=== PATIENT | male | born 1960 | race Caucasian/White ===

== ENCOUNTER 2019-06-29 05:35 | Day surgery (SDC) | payer BC, SELFPAY ==
[2019-06-28 08:58] VITALS: BMI 25.0
--- NOTE | 2019-06-28 10:05 | HP.PCM_ITS ---
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 Is patient in pain?: No Allergies No Known Allergies Allergy (Unverified 06/28/19 08:59) Medications NK 06/28/19 [History Confirmed 06/28/19] [facility] Medical History Cat scratch fever (Acute) Surgical History H/O elbow surgery (Acute) History of facial surgery (Acute) s/p salivary gland removal (Acute) Family History Father Colon cancer Sister Colon cancer HPI HPI HPI: DANIEL HERNANDEZ, is a 58 M who presents to the office today for HPI HPI Surgical H&P: Yes HPI: DANIEL HERNANDEZ, is a 58 M who presents to the office today for left inguinal hernia. The patient reports that this is been there for about 2 years. It is bothersome. It happens whenever he coughs or sneezes or lifts heavy objects. He is not having any symptoms on the opposite side. ROS General General: No weight change or fatigue Cardio Cardiovascular: No murmur, pacemaker, heart disease, atrial fibrillation, high blood pressure, heart attack, heart stent, palpitations, shortness of breat with exertion or chest pain Psych Psychiatric: No depression or anxiety Resp Respiratory: No shortness of breath, No sleep apnea, No cough, No COPD, No asthm a, No emphysema, No wheezing Gastro Gastrointestinal: No abdominal pain, No nausea or vomiting, No diarrhea, No constipation, No blood in stool, No acid reflux, No hemorrhoids, No ulcers, No gallbladder problem, No black,tarry stools Additional Details: Left groin bulging Davion Hematologic: No blood thinners Exam Const General: cooperative Orientation: alert, oriented x3 Resp Effort & Inspection: normal respiratory effort Auscultation: clear to auscultation bilaterally Cardio Rate: regular rate Rhythm: regular rhythm Heart Sounds: no murmurs GI Inspection: non-distended Palpation: soft, nontender Other: Patient has a left direct inguinal hernia which is reducible and soft Assessment & Plan Problems 1. Left inguinal hernia K40.90 Plan The patient has a left direct inguinal hernia. I discussed open versus robotic surgery with him. He would like robotic surgery. I discussed the risks including but not limited to bleeding, infection, spermatic cord injury, bowel injury, chronic groin pain. The patient understands all the risks and is willing to proceed with robotic assisted laparoscopic left inguinal hernia repair with mesh. I also discussed fixing the contralateral side if a hernia is noted and he would like this repaired if present. Josias Garcia MD Pager: [facility] [address] [place] [address] [address] [place] [address] Office:
--- NOTE | 2019-06-28 15:10 | EKG12_ITS ---
Test Reason : PRE OP Blood Pressure : / mmHG Vent. Rate : 091 BPM Atrial Rate : 091 BPM P-R Int : 162 ms QRS Dur : 084 ms QT Int : 346 ms P-R-T Axes : 057 036 067 degrees QTc Int : 425 ms Normal sinus rhythm Normal ECG Confirmed by CHONG COON, RU ([id number]), editor sound KIMBERLY TESFAYE ([id number]) on 07/03/2019 11:43:26 AM Referred By: Josias Garcia Confirmed By:KANE SCHWARZ MD
[2019-06-28 15:15] LABS: Hematocrit 45.7 % (40-54); Hemoglobin 15.4 g/dL (13.0-16.5); Mean Corp Hgb Conc 33.7 g/dL (32-36); Mean Corpuscular Hgb 32.6 pg (27.0-32.0); Mean Corpuscular Volume 96.8 fL (80-94); Mean Platelet Vol. 9.3 fl (6.2-12.0); Platelet Count 277 K/mm3 (150-450); RBC Distribution Width CV 12.7 % (11.6-14.6); RBC Distribution Width SD 45.7 fl (35.1-43.9); Red Blood Count 4.72 M/mm3 (4.6-6.2); White Blood Count 7.2 K/mm3 (4.4-11.0)
[2019-06-28 15:40] LABS: Partial Thromboplast Time 31.6 Seconds (24.1-36.2)
[2019-06-28 15:56] LABS: AST(SGOT) 21 U/L (15-37); Alanine Aminotransfer ALT/SGPT 26 U/L (16-61); Albumin, Serum 4.6 g/dL (3.2-5.0); Alkaline Phosphatase 75 U/L (45-117); Anion Gap 4 (5-15); BUN 14 mg/dL (7-18); BUN/Creat Ratio 12.5 RATIO (10-20); Bilirubin, Direct 0.13 mg/dL (0.00-0.30); Calcium,Total 9.4 mg/dL (8.5-10.1); Chloride 106 mmol/L (98-107); Creatinine, Serum 1.12 mg/dL (0.70-1.30); EST Glomerular Filtration Rate 72 mL/min (>60); Est Glom Filt Rate - Afr Amer 87 mL/min (>60); Globulin 3.3 g/dL (2.2-4.2); Glucose 137 mg/dL (74-106); Potassium 4.2 mmol/L (3.5-5.1); Protein, Total 7.9 g/dL (6.4-8.2); Sodium Level 140 mmol/L (136-145)
[2019-06-29] VITALS (10 sets, daily range): BP systolic 108–137; BP diastolic 76–92; PULSE 55–86; RESP 16; TEMP 36.1–36.7; O2SAT 95–100; BMI 25.8
[2019-06-29] MEDS: Lactated Ringers 1,000 ML 100 ML IV ×2 (06:08→06:10)
--- NOTE | 2019-06-29 07:30 | LIP_PTH ---
PATIENT: SAMUEL HERNANDEZ LOC: [facility] U#:[id number] AGE/SX: 58/M ROOM: RE06/29/[address]: Dr. Josias Garcia MD : 1960 BED: DIS: 06/29/2019 SPEC #: [id number] RECD: 06/29/19 10:11 STATUS: ZAIRA REConcetta #: [id number] CARLINE: 06/29/19 07:[address]: Josias Garcia DEPT: SURGICAL PATHOLOGY RECD BY: Kevin Larsen ENTERED: 06/29/19 12:52 SP TYPE: LIPOMA OTHR DR: MD Dr. Samuel Pastor MD Tissues: Soft tissues, NOS Procedures: Surgery Specimen Level III HEADER OPERATION: Lap robotic inguinal hernia PRE-OP DIAGNOSIS: Left inguinal hernia TISSUE SUBMITTED: Lipoma MICROSCOPIC DIAGNOSIS Lipoma: Mature adipose tissue, consistent with lipoma. SJ:iesha 06/30/19 MICROSCOPIC DESCRIPTION Slides are reviewed. GROSS DESCRIPTION Received in fixative is one container labeled with the patient name and designated lipoma. The specimen consists of multiple pieces of yellow adipose tissue measuring in aggregate 4.5 x 4 x 1.5 cm. Sections reveal yellow adipose cut surfaces without area of hemorrhage, necrosis or cystic degeneration. Vocational School Teacher sections are submitted in three cassettes. / SJ:iesha 06/29/19 TC:1 CPT: 37136
[2019-06-29] MEDS: Cefazolin 2 GM in 0.9% Normal Saline 100 ML IV (08:11)
[2019-06-29] MEDS: Bupivacaine Mpf 0.5% 30 ML VIAL (09:00)
[2019-06-29] MEDS: Acetaminophen 325 MG Tablet PO (12:01)
[2019-06-29] MEDS: oxyCODONE 5 MG Tablet PO (12:02)
--- NOTE | 2019-06-29 12:14 | PCM.DC.HER ---
Discharge Diet: Light diet - advance as tolerated Discharge Activity: Return to Normal Activity, May Not Drive - for 2-3 days or while taking narcotic pain meds., May Shower - with the bandage in place 1-2 days after surgery. Lifting Restrictions: 20 pounds for 4 weeks. Additional Activity Instructions:: Climbing stairs is fine, walking is encouraged. Sitting in bed may be uncomfortable. Sitting up using your lateral muscles (sitting up sideways) is usually more comfortable. Do not drive, work heavy equipment of sign legal documents for 24 hours. If your hernia repair was an ingunial repair, you may have scrotal swelling, an ice pack and/or athletic support can provide more comfort. Pain medications may cause nausea, you should typically eat light foods as you take your pain medications. Pain medications may also cause constipation. If you have difficulty with this, discuss with your doctor. Call your doctor if your incision/area has: Continuous Slow Oozing, Sudden Increased Bleeding, Increased Pain/ Swelling, Increased Redness, Foul Smelling Discharge Call your doctor if you observe: Fever of 101 or Higher Suture Line Care: Avoid Pulling/Pushing, Avoid Pinching/Bending Change Dressing in (Days):: 3 - Leave steri-strips for 1 week. May protect with a guaze bandaid. Cleanse incision/area with: Keep Dressing Clean & Dry Allergies/Adverse Reactions: Allergies No Known Allergies Allergy (Verified 06/29/19 05:50) Medications to take at Discharge Oxycodone HCl/Acetaminophen [Percocet 5/325] 1 - 2 tablet PO Q6H PRN PRN 4 Days #20 tablet 06/29/19 The following prescriptions were given: Oxycodone HCl/Acetaminophen [Percocet 5/325] 1 - 2 tablet PO Q6H PRN PRN 4 Days #20 tablet PRN Reason: Pain Transmission Status: Sent to [facility] Orders to be completed after discharge: 12 Lead EKG [CVS] Time Frame: 06/28/19, Facility: [facility], Location: Cardiovascular Services Basic Metabolic Profile (BMP) Time Frame: 06/28/19, Facility: [facility], Location: Laboratory CBC-Complete Blood Cnt No Diff Time Frame: 06/28/19, Facility: [facility], Location: Laboratory Liver Profile Time Frame: 06/28/19, Facility: [facility], Location: Laboratory Partial Thromboplast Time Time Frame: 06/28/19, Facility: [facility], Location: Laboratory Prothrombin Time w/INR Time Frame: 06/28/19, Facility: [facility], Location: Laboratory Primary Care Physician: Samuel Denise MD [Primary Care Provider] - Test Results: Test results from this visit will be discussed in further detail at your follow-up appointment, if applicable. Please Follow Up With: Josias Garcia MD When: Please call to schedule 2 week follow up appointment. [phone]
--- NOTE | 2019-06-30 08:19 | OP.PCM_ITS ---
Problem List (1) Left inguinal hernia Status: Acute Report of Operation Date of Procedure: 06/29/19 Pre-Operative Diagnosis: Left inguinal hernia Post-Operative Diagnosis: Same Surgery/Procedure Performed:: Robotic assisted laparoscopic left inguinal hernia repair with mesh Specimen's removed: Lipoma Description of Procedure: Patient was brought back the operating room and general anesthesia was induced. The abdomen was prepped and draped in usual sterile fashion. An incision was made superior to the midline and a Veress needle was placed into the abdomen and a drop test was performed. The abdomen was then insufflated to 15 mmHg. The Veress needle was removed and the camera port was placed into the abdomen and the abdomen was inspected for injuries and there were none. Next the inguinal areas were inspected and the patient had an indirect left inguinal hernia. Next a 8 mm port was placed in the right lateral sidewall and left lateral sidewall u nder direct visualization and the patient was placed into steep Trendelenburg position and the robot was docked. Using electrocautery scissors the peritoneum was incised and dissected inferiorly until the hernia sac was reached. The hernia sac was reduced into the abdomen using a combination of sharp and cautery dissection. There was a lipoma of the left inguinal cord which was excised. Once the dissection was complete a pro-director nursery school mesh was placed in the left inguinal region and unfolded completely covering the hernia. Next the peritoneum was reapproximated using a running 3-0V lock suture. This completely covered the mesh. The abdomen then was then desufflated and the robot was undocked. The incisions were anesthetized and closed with interrupted 4 Monocryl sutures as well as Steri-Strips and bandages. The patient tolerated the procedure well. He was brought to PACU in stable condition. Grafts/Implants Used: Pro-director nursery [employer] mesh - Admit VTE Documentation VTE Mechan Device Prophylaxis: SCD's
== END 2019-06-29 13:00 | disposition home or self-care (01) ==
LOC: SDC 05:36 → AC 05:36
PROVIDERS: Family Provider Family Medicine; PCP Family Medicine; Referring Provider Surgery; Visit Provider Surgery
PROC: 0YQ64ZZ Repair Left Inguinal Region, Percutaneous Endoscopic Approach (ICD-10-PCS; CPT 49650; principal; 2019-06-29 07:10)
DX: K40.90 Unilateral inguinal hernia, without obstruction or gangrene, not specified as recurrent (principal); F17.220 Nicotine dependence, chewing tobacco, uncomplicated
CPT/HCPCS: 00840; 49650; S2900; 36415; 80048; 80076; 85027; 85610; 85730; 88304; 93005; J7120; J2405

== ENCOUNTER 2020-12-20 07:21 | Day surgery (SDC) | payer BC, SELFPAY ==
[2019-06-29 05:51] VITALS: BMI 25.8
[2020-12-20] VITALS (7 sets, daily range): BP systolic 91–133; BP diastolic 63–89; PULSE 53–63; RESP 14–16; TEMP 36.4–36.6; O2SAT 97–100; BMI 25.0
[2020-12-20] MEDS: Lactated Ringers 1,000 ML 100 ML IV (08:00)
--- NOTE | 2020-12-20 08:20 | HP.PCM_ITS ---
HPI - General HPI Narrative DANIEL HERNANDEZ, is a 60 M who presents for surveillance colonoscopy. Patient is high risk due to having a sister and father with colon cancer. The patient has no blood in his stool and his last colonoscopy was normal. His last colonoscopy was over 5 years ago. [facility] Medical History (Updated 12/20/20 @ 08:[address] Josias Garcia MD) Alcohol use Back pain Cat scratch fever Chewing tobacco use Wears glasses Wears partial dentures Home Medications NK 07/13/19 [History Last Taken Unknown] Allergy/AdvReac Type Severity Reaction Status Date / Time No Known Allergies Allergy Verified 12/20/20 07:52 Family History Father Colon cancer Sister Colon cancer Surgical History H/O elbow surgery History of facial surgery s/p salivary gland removal Status post left inguinal hernia repair Social History (Updated 07/13/19 @ 09:[address] Josias Garcia MD) Smoking Status: Former smoker Smokeless tobacco user: chewing tobacco alcohol intake: current alcohol intake frequency: 3 or more drinks per day Past Medical/Surgical History Planned Operation Planned Operative Procedure/s: COLONOSCOPY S.O.S: No Previous Hospitalizations/Surgeries HX Hospitalizations: No HX of Surgeries: salivary gland removed/ left side left elbow surgery oral surgery colonoscopy X2 Any Problems With Anesthesia: No You/Your Family Experience Fever (Hyperthermia) With Anes: No Cholinesterase deficiency: No Cardiovascular Hx Chest Pain within Last 2 months: No Hx of Irregular Heartbeat and/or Afib: No Hx Heart Attack: No Hx Congestive Heart Failure: No Hx Rheumatic Fever: No Hx Hypertension: No Hx Internal Defibrillator: No Hx Pacemaker: No Hx Cardiac Catheterization: No Hx Cardiac Surgery/Stents/Etc.: No Hx Stress Test: No Hx Pain in Legs when Walking/Leg Cramps: No Respiratory Chronic Cough: No HX of Shortness of Breath: No Hoarseness: No Hx Chronic Obstructive Pulmonary Disease (COPD): No Hx Asthma: No Hx Emphysema: No Hx Sleep Apnea: No Hx Respiratory Tract Infection/Cold (presently): No Do You Snore Loudly (louder than talking or can be heard): No Do You Often Feel Tired/ Fatigued/ Sleepy Dring Daytime?: No Has Anyone Observed You Stop Breathing During Sleep?: No Result (for STOP score): Negative Hx Smoking: Yes (quit smoking 1984, chews daily) Smoking Status: Former smoker Gastrointestinal Hx Gastroesophageal Reflux: No Hx Gastrointestinal Disorders: Yes (hx polyp) Hx Gastrointestinal Bleed: No Hx Ulcer: No Hx Hiatal Hernia: No Difficulty Chewing/Swallowing: No Special diet followed at home: No Hx Unplanned Weight Loss of 20#: No HX Unplanned Weight Gain of 20#: No Neurological Hx Seizures: No HX Syncope/Blackout Spells/Unconsciousness: No Hx Transient Ischemic Attacks (TIA): No Hx Multiple Sclerosis: No Hx Parkinson's Disease: No Hx Head/Neck Injury: No Hx Headaches: No Hx Back Injury/Pain: No Recent Onset of Speech Difficulty: No Restless Legs: No Does patient have nerve stimulator: No Blood Disorder Hx Leukemia: No Bleeding Tendencies: No Hx Deep Vein Thrombosis: No Hx High Cholesterol: No Blood Transmitted Disease: No Hx Hepatitis: No Hx Cirrhosis: No Hx Anemia: No Hx Blood Disorders: No Genitourinary Hx Renal Disease: No Musculoskeletal Hx Arthritis: No Hx Rheumatoid Arthritis: No Hx Gout: No Recent Onset of an Orthopedic Problem: No Endocrine Hx Diabetes: No Thyroid Disease: No Hx Steroid Therapy: No Psycho/Social Hx Substance Use: No Hx Alcohol Use: Yes (6 beers/day) Hx Anxiety: No Hx Depression: No Mental Illness: No Hx Dementia: No Miscellaneous Hx Cancer: No Recent Exposure to Contagious Disease: No Hx of C-Diff: No Any Loose Teeth: Yes (partial lower) Allergies No Known Allergies Allergy (Verified 12/20/20 07:52) Discharge Is Pt Admitted From a Usp, or a Assisted: No After D/C, Where Do you Plan to Go: Return Home Vital Signs Vital Signs Vital Signs: 12/20/20 07:53 Temperature 97.6 F L Temperature Source Temporal Pulse Rate 63 Respiratory Rate 16 Respiratory Pattern Normal Blood Pressure 133/89 H Blood Pressure Mean 103 Blood Pressure Source Monitor Blood Pressure Position Semi-Fowlers Blood Pressure Location Right Arm Pulse Ox 100 Oxygen Delivery Method Room Air Weight Weight: 164 lb 3.91 oz Body Mass Index (BMI) 25.0 Physical Exam Const alert and oriented x3 Resp normal respiratory effort and normal air movement Cardio regular rate and regular rhythm GI soft to palpation, non-tender and non-distended Assessment & Plan Assessment/Plan (1) Screen for colon cancer: PLAN: Patient is here for surveillance colonoscopy. Patient is high risk due to family members with colon cancer. I explained endoscopy in detail to the patient. I explained the risks including but not limited to stroke or heart attack with anesthesia, perforation of the GI tract, bleeding, infection. I explained that any of these could necessitate further emergency surgery. The patient understands and all questions were answered sufficiently. The patient wishes to proceed with procedure. Josias Garcia MD Pager: [facility] [address] [place] [address] [address] [place] [address] Office: Surgery Risks - Colonoscopy Risks Include but are not Limited To: Risks include but are not limited to: Bleeding, perforation requiring further surgery, inability to complete colonoscopy requiring barium enema.
--- NOTE | 2020-12-20 08:51 | OP.COLON_ITS ---
Patient Name: Samuel Mcdaniel Procedure Date: 12/20/2020 8:28 AM Date of : 1960 Age: 60 Procedure: Colonoscopy Indications: Family history of colon cancer in multiple first-degree relatives Providers: Josias Garcia MD Medicines: Monitored Anesthesia Care Patient Profile: This is a 60 year old male. Refer to note in patient chart for documentation of history and physical. Last Colonoscopy: several years ago. Complications: No immediate complications. Procedure: Pre-Anesthesia Assessment: - Prior to the procedure, a History and Physical was performed, and patient medications and allergies were reviewed. The patient's tolerance of previous anesthesia was also reviewed. The risks and benefits of the procedure and the sedation options and risks were discussed with the patient. All questions were answered, and informed consent was obtained. Prior Anticoagulants: The patient has taken no previous anticoagulant or antiplatelet agents. After reviewing the risks and benefits, the patient was deemed in satisfactory condition to undergo the procedure. After I obtained informed consent, the scope was passed under direct vision. Throughout the procedure, the patient's blood pressure, pulse, and oxygen saturations were monitored continuously. The colonoscope was introduced through the anus and advanced to the cecum, identified by appendiceal orifice and ileocecal valve. The colonoscopy was performed without difficulty. The patient tolerated the procedure well. The quality of the bowel preparation was good. Scope In: 8:35:22 AM Scope Withdrawal Time 0 hours 6 minutes 18 seconds Scope Out: 8:47:33 AM Total Procedure Duration Time 0 hours 12 minutes 11 seconds Findings: The entire examined colon appeared normal on direct and retroflexion views. Impression: - The entire examined colon is normal on direct and retroflexion views. - No specimens collected. Recommendation: - Discharge patient to home. - Resume previous diet. - Continue present medications. - Repeat colonoscopy in 5 years for surveillance. Procedure Code(s): --- Professional --- 00283, Colonoscopy, flexible; diagnostic, including collection of specimen(s) by brushing or washing, when performed (separate procedure) Diagnosis Code(s): --- Professional --- Z80.0, Family history of malignant neoplasm of digestive organs CPT copyright 2017 [employer]. All rights reserved. The codes documented in this report are preliminary and upon price checker review may be revised to meet current compliance requirements. Josias Garcia MD 12/20/2020 8:50:41 AM This report has been signed electronically. Number of Addenda: 0 Note Initiated On: 12/20/2020 8:28 AM
--- NOTE | 2020-12-20 08:51 | OP.CCLET_ITS ---
12/20/2020 Samuel Denise Re : Colonoscopy procedure for Samuel Valentinr Camelia This procedure was performed on Sunday, December 20, 2020. My impressions and recommendations are as follows: Impressions : - The entire examined colon is normal on direct and retroflexion views. - No specimens collected. Recommendations : - Discharge patient to home. - Resume previous diet. - Continue present medications. - Repeat colonoscopy in 5 years for surveillance. My findings are described in the full procedure note, which is enclosed. If I can be of further assistance, please feel free to contact me at Doctor phone number(s): , Work: . Sincerely, Josias Garcia MD 12/20/2020 8:50:41 AM This report has been signed electronically.
== END 2020-12-20 10:15 ==
LOC: EN 07:22 → AC 07:23
PROVIDERS: PCP Family Medicine; Referring Provider Surgery; Visit Provider Surgery
PROC: 0DJD8ZZ Inspection of Lower Intestinal Tract, Via Natural or Artificial Opening Endoscopic (ICD-10-PCS; CPT 45378; principal; 2020-12-20 08:25)
DX: Z12.11 Encounter for screening for malignant neoplasm of colon (principal); Z80.0 Family history of malignant neoplasm of digestive organs; Z87.891 Personal history of nicotine dependence
CPT/HCPCS: 45378; 87426; J7120; J2405

== ENCOUNTER → 2022-10-13 | Outpatient (CLI) | payer BC, SELFPAY ==
[2022-10-13 12:40] LABS: Absolute Lymphocyte Count 0.94 X10^3/uL (0.83-4.51); Basophil# 0.04 X10^3/uL; Basophil% 0.7 % (0-1); Eosinophil# 0.15 X10^3/uL; Eosinophils% 2.6 % (0-5); Hematocrit 46.3 % (40-54); Hemoglobin 15.5 g/dL (13.0-16.5); Lymphocyte # 0.94 X10^3/ul (0.83-4.51); Lymphocyte % 16.5 % (19-41); Mean Corp Hgb Conc 33.5 g/dL (32-36); Mean Corpuscular Hgb 32.7 pg (27.0-32.0); Mean Corpuscular Volume 97.7 fL (80-94); Mean Platelet Vol. 10.1 fl (6.2-12.0); Monocyte# 0.54 X10^3/uL; Monocyte% 9.5 % (0-10); NRBC Flagged by Analyzer 0 % (0-5); Neutrophil # 3.99 X10^3/uL (2.7-7.7); Neutrophil % 70.3 % (47-70); Platelet Count 305 K/mm3 (150-450); RBC Distribution Width CV 11.9 % (11.6-14.6); RBC Distribution Width SD 43.5 fl (35.1-43.9); Red Blood Count 4.74 M/mm3 (4.6-6.2); White Blood Count 5.7 K/mm3 (4.4-11.0)
[2022-10-13 12:58] LABS: Vitamin B12 566 pg/mL (211-911); Vitamin D,25 Hydroxy 20.8 ng/mL
[2022-10-13 13:02] LABS: ALB/GLOB Ratio 1.3 RATIO (0.9-2.4); AST(SGOT) 22 U/L (15-37); Alanine Aminotransfer ALT/SGPT 33 U/L (16-61); Albumin, Serum 4.2 g/dL (3.2-5.0); Alkaline Phosphatase 64 U/L (45-117); Anion Gap 6 (5-15); BUN 13 mg/dL (7-18); BUN/Creat Ratio 11.9 RATIO (10-20); Calcium,Total 9.2 mg/dL (8.5-10.1); Chloride 104 mmol/L (98-107); Cholesterol 190 mg/dL (200); Creatinine, Serum 1.09 mg/dL (0.70-1.30); EST Glomerular Filtration Rate 73 mL/min (>60); Est Glom Filt Rate - Afr Amer 89 mL/min (>60); Globulin 3.2 g/dL (2.2-4.2); Glucose 105 mg/dL (74-106); High Density Lipoprotein 83 mg/dL; PSA,Total - Annual Screen 1.06 ng/mL (0.00-4.00); Potassium 4.4 mmol/L (3.5-5.1); Protein, Total 7.4 g/dL (6.4-8.2); Sodium Level 136 mmol/L (136-145); Triglycerides 44 mg/dL; Very Low Density Lipoprotein 9 mg/dL (5-40)
== END | disposition home or self-care (01) ==
LOC: BFHLAB 09:11
PROVIDERS: PCP Family Medicine
DX: Z12.5 Encounter for screening for malignant neoplasm of prostate (principal); Z13.1 Encounter for screening for diabetes mellitus; Z13.21 Encounter for screening for nutritional disorder
CPT/HCPCS: 36415; 80053; 80061; 82306; 82607; 84153; 85025; G0103

== ENCOUNTER → 2025-01-01 | Outpatient (CLI) | payer BC, SELFPAY ==
[2025-01-01 12:39] LABS: Absolute Lymphocyte Count 1.27 X10^3/uL (0.83-4.51); Absolute Neutrophil Count 4.7 X10^3/uL (2.0-7.7); Basophil# 0.04 X10^3/uL; Basophil% 0.6 % (0-1); Eosinophil# 0.12 X10^3/uL; Eosinophils% 1.8 % (0-5); Hematocrit 42.2 % (40-54); Hemoglobin 14.3 g/dL (13.0-16.5); Lymphocyte # 1.27 X10^3/ul (0.83-4.51); Lymphocyte % 18.9 % (19-41); Mean Corp Hgb Conc 33.9 g/dL (32-36); Mean Corpuscular Hgb 31.8 pg (27.0-32.0); Mean Platelet Vol. 9.9 fl (6.2-12.0); Monocyte# 0.58 X10^3/uL; Monocyte% 8.6 % (0-10); NRBC Flagged by Analyzer 0 % (0-5); Neutrophil # 4.71 X10^3/uL (2.7-7.7); Platelet Count 283 K/mm3 (150-450); RBC Distribution Width SD 41.8 fl (35.1-43.9); Red Blood Count 4.49 M/mm3 (4.6-6.2); White Blood Count 6.7 K/mm3 (4.4-11.0)
[2025-01-01 14:07] LABS: ALB/GLOB Ratio 1.8 RATIO (0.9-2.4); AST(SGOT) 21 U/L (<=37); Alanine Aminotransfer ALT/SGPT 24 U/L (<=46); Albumin, Serum 4.5 g/dL (3.4-4.8); Alkaline Phosphatase 73 U/L (40-129); Anion Gap 11 (5-15); BUN 11 mg/dL (4-19); BUN/Creat Ratio 10.9 RATIO (10-20); Calcium,Total 9.5 mg/dL (7.6-11.0); Carbon Dioxide 24.7 mmol/L (21.0-32.0); Chloride 101 mmol/L (98-108); Cholesterol 206 mg/dL (<=200); Creatinine, Serum 1.05 mg/dL (0.70-1.20); EST Glomerular Filtration Rate 80 (>60); Globulin 2.5 g/dL (2.2-4.2); Glucose 95 mg/dL (70-99); High Density Lipoprotein 72 mg/dL; Low Density Lipoprotein Calc. 125 mg/dL; PSA,Total - Annual Screen 1.28 ng/mL (0.02-4.00); Potassium 4.2 mmol/L (3.3-5.1); Protein, Total 7.1 g/dL (5.9-8.4); Sodium Level 137 mmol/L (133-145); Total Bilirubin 0.54 mg/dL (0.00-1.30); Triglycerides 43 mg/dL; Very Low Density Lipoprotein 9 mg/dL (5-40); cholesterol:hdl ratio screen 2.86
== END | disposition home or self-care (01) ==
LOC: LAB 12:09
PROVIDERS: PCP Family Medicine; Referring Provider Family Medicine; Visit Provider Family Medicine
DX: Z00.00 Encounter for general adult medical examination without abnormal findings (principal); Z12.5 Encounter for screening for malignant neoplasm of prostate
CPT/HCPCS: 36415; 80053; 80061; 84153; 85025; G0103

== ENCOUNTER → 2025-06-04 | Outpatient (CLI) | payer BC, SELFPAY ==
--- NOTE | 2025-06-04 16:00 | RAD_ITS ---
PROCEDURE: CHEST PA AND LATERAL 06/04/2025 REASON FOR EXAM: CHEST PAIN TECHNIQUE: Procedure Code: RADCXR Modality: DX Procedure: CHEST PA AND LATERAL FINDINGS: No focal consolidation. No pleural effusion or pneumothorax. Cardiac silhouette is within normal limits. No acute fractures. RAD/Chest PA and Lateral IMPRESSION: No focal consolidations. Reading Location: [id number]
[2025-06-04 17:37] LABS: Hematocrit 43.7 % (40-54); Hemoglobin 14.8 g/dL (13.0-16.5); Immature Granulocytes Count 0.010 X10^3/uL (0.0-0.0); Mean Corp Hgb Conc 33.9 g/dL (32-36); Mean Corpuscular Volume 95.0 fL (80-94); Mean Platelet Vol. 9.8 fl (6.2-12.0); NRBC Flagged by Analyzer 0 % (0-5); Platelet Count 300 K/mm3 (150-450); RBC Distribution Width CV 12.1 % (11.6-14.6); RBC Distribution Width SD 42.7 fl (35.1-43.9); Red Blood Count 4.60 M/mm3 (4.6-6.2); White Blood Count 7.1 K/mm3 (4.4-11.0)
[2025-06-04 18:28] LABS: AST(SGOT) 24 U/L (<=37); Alanine Aminotransfer ALT/SGPT 42 U/L (<=46); Albumin, Serum 4.5 g/dL (3.4-4.8); Alkaline Phosphatase 81 U/L (40-129); Anion Gap 11 (5-15); BUN 13 mg/dL (4-19); BUN/Creat Ratio 12.5 RATIO (10-20); Calcium,Total 9.5 mg/dL (7.6-11.0); Carbon Dioxide 26.8 mmol/L (21.0-32.0); Chloride 100 mmol/L (98-108); Globulin 2.5 g/dL (2.2-4.2); Glucose 120 mg/dL (70-99); Potassium 4.0 mmol/L (3.3-5.1); Troponin T High Sensitivity 6 ng/L (<=22)
== END | disposition home or self-care (01) ==
LOC: MTLAB 15:58
PROVIDERS: PCP Family Medicine; Referring Provider Family Medicine; Visit Provider Family Medicine
DX: R07.9 Chest pain, unspecified (principal); R19.8 Other specified symptoms and signs involving the digestive system and abdomen
CPT/HCPCS: 36415; 71046; 80053; 84484; 85025